=== PATIENT | male | born 1995 | race Caucasian/White ===

== ENCOUNTER 2018-05-22 15:30 | Outpatient (CLI) | payer OTHER ==
[2012-05-05 11:21] VITALS: BP 112/65
[2018-05-22 15:41] LABS: BASOPHILS % 0.5 (0.0-1.5); EOSINOPHILS % 3.8 % (0.0-6.8); MEAN CORPUSCULAR HEMOGLOBIN 28.2 pg (28.0-34.0); NEUTROPHILS # 4.2 # k/uL (1.4-7.7)
== END 2018-05-22 15:33 ==
LOC: SUPCPDRO 15:30 → LAB 15:30
PROVIDERS: ATTEND Family Medicine
DX: R53.83 Other fatigue (principal)
CPT/HCPCS: 36415; 82306; 84443; 85025

== ENCOUNTER 2018-08-01 11:07 | Outpatient (CLI) | payer OTHER ==
[2012-05-05 11:21] VITALS: BP 112/65
== END 2018-08-01 11:09 ==
LOC: LAB 11:07
PROVIDERS: ATTEND Family Medicine
DX: E55.9 Vitamin D deficiency, unspecified (principal)
CPT/HCPCS: 36415; 82306